=== PATIENT | female | born 1985 | race Caucasian/White ===

== ENCOUNTER 2020-01-12 19:32 | Emergency (ER) | payer MEDICAID, BC ==
[~2020-01-12] VITALS: Ht 160 cm; Wt 65.8 kg
[~2020-01-12 19:32] MED LIST: SYNTHROID125 MCG PO; XANAX0.5 MG PO
[2020-01-12 19:50] VITALS: Ht 160 cm; Wt 65.8 kg
[2020-01-12 21:35] VITALS: BP 129/82
== END 2020-01-12 21:35 | disposition home or self-care (01) ==
LOC: D.ER 19:32
DX: R20.8 Other disturbances of skin sensation (principal); E07.9 Disorder of thyroid, unspecified

== ENCOUNTER 2020-01-23 23:06 | Emergency (ER) | payer MEDICAID ==
[~2020-01-23] VITALS: Ht 160 cm; Wt 63.6 kg
[2020-01-23 23:26] VITALS: Ht 160 cm; Wt 63.6 kg
[2020-01-24 00:15] VITALS: BP 116/71
== END 2020-01-24 00:15 | disposition home or self-care (01) ==
LOC: D.ER 23:06
DX: R53.1 Weakness (principal); F41.9 Anxiety disorder, unspecified; E03.9 Hypothyroidism, unspecified

== ENCOUNTER 2020-02-08 20:47 | Emergency (ER) | payer OTHER, MEDICAID ==
[~2020-02-08] VITALS: Ht 160 cm; Wt 63.6 kg
[2020-02-08 21:06] VITALS: Ht 160 cm; Wt 63.6 kg
[2020-02-08 21:28] LABS: BASOPHILS 1.2 % (0-2); EOSINOPHILS 1.5 % (0-7); HEMATOCRIT 40.2 % (36.0-48.0); HEMOGLOBIN 12.5 g/dL (12-16); IMMATURE GRANULOCYTES 0.1 % (0-5); MCH 26.4 pg (26.0-34.0); MCHC 31.1 g/dL (31.0-37.0); MEAN PLATELET VOLUME 10.7 fL (7.4-10.4); MONOCYTES 7.5 % (2-11); NEUTROPHILS 54.7 % (40-80); PLATELET COUNT 259 10x3/uL (130-400); RBC 4.73 10x6/uL (4.00-5.40); RDW 15.2 % (11.5-14.5); WBC 8.2 10x3/uL (4.8-10.8)
[2020-02-08 21:44] LABS: BILIRUBIN NEGATIVE (NEGATIVE); GLUCOSE NEGATIVE (NEGATIVE); KETONE NEGATIVE (NEGATIVE); NITRITE NEGATIVE (NEGATIVE); SPECIFIC GRAVITY 1.005 (1.005-1.020); UROBILINOGEN NORMAL (NORMAL)
[2020-02-08 21:46] LABS: CALC OSMOLALITY 280 mosm/kg (275-300); CALCIUM 9.4 mg/dL (8.5-10.1); CARBON DIOXIDE 29.3 mmol/L (21.0-32.0); CHLORIDE - SERUM 105 mmol/L (98-107); GLUCOSE 94 mg/dL (74-106); POTASSIUM - SERUM 3.6 mmol/L (3.5-5.1); SODIUM 141 mmol/L (136-145); UREA NITROGEN 12 mg/dL (7-18); eGFR NON AFRICAN AMERICAN 67 mL/min (90-120)
[2020-02-08 21:57] LABS: UDS - AMPHET NEGATIVE QUAL (NEGATIVE); UDS - BARB NEGATIVE QUAL (NEGATIVE); UDS - BENZO POSITIVE QUAL (NEGATIVE); UDS - COCAINE NEGATIVE QUAL (NEGATIVE); UDS - OPIATE NEGATIVE QUAL (NEGATIVE); UDS - PCP NEGATIVE QUAL (NEGATIVE); UDS - THC NEGATIVE QUAL (NEGATIVE)
[2020-02-08 21:58] LABS: ALBUMIN 4.3 g/dL (3.4-5.0); ALKALINE PHOSPHATASE 61 U/L (30-120); ALT (SGPT) 14 U/L (10-68); BILIRUBIN - TOTAL 0.32 mg/dL (0.2-1.3); PROTEIN - SERUM 7.5 g/dL (6.4-8.2); THYROID STIMULATING HORMONE 1.45 uIU/mL (0.36-3.74)
[2020-02-08 22:00] LABS: TROPONIN-I < 0.017 ng/mL (0.000-0.060)
[2020-02-08 23:10] VITALS: BP 132/67
== END 2020-02-08 23:14 | disposition home or self-care (01) ==
LOC: D.ER 20:47
PROVIDERS: Family Medicine
DX: R53.1 Weakness (principal)

== ENCOUNTER → 2020-02-12 09:45 | Outpatient (CLI) | payer OTHER, MEDICAID ==
[2020-02-08 21:06] VITALS: BMI 24.8
== END | disposition home or self-care (01) ==
LOC: D.MRI 09:45
PROVIDERS: ATTEND Psychiatry & Neurology Neurology
DX: G37.9 Demyelinating disease of central nervous system, unspecified (principal)

== ENCOUNTER 2020-02-12 10:55 | Emergency (ER) | payer OTHER, MEDICAID ==
[~2020-02-12] VITALS: Ht 165.1 cm; Wt 63.6 kg
[2020-02-12 11:00] VITALS: Ht 165.1 cm; Wt 63.6 kg
[2020-02-12 11:59] LABS: BASOPHILS 1.6 % (0-2); EOSINOPHILS 1.5 % (0-7); HEMATOCRIT 43.6 % (36.0-48.0); HEMOGLOBIN 13.2 g/dL (12-16); LYMPHOCYTES 32.2 % (15-50); MCH 26.1 pg (26.0-34.0); MCHC 30.3 g/dL (31.0-37.0); MCV 86.3 fL (80.0-100.0); MEAN PLATELET VOLUME 11.3 fL (7.4-10.4); MONOCYTES 6.4 % (2-11); NEUTROPHILS 58.3 % (40-80); PLATELET COUNT 294 10x3/uL (130-400); RBC 5.05 10x6/uL (4.00-5.40); RDW 15.3 % (11.5-14.5); WBC 6.1 10x3/uL (4.8-10.8)
[2020-02-12 12:14] LABS: CALC OSMOLALITY 280 mosm/kg (275-300); CALCIUM 9.4 mg/dL (8.5-10.1); CARBON DIOXIDE 30.6 mmol/L (21.0-32.0); CHLORIDE - SERUM 104 mmol/L (98-107); CREATININE - SERUM 0.8 mg/dL (0.6-1.3); GLUCOSE 76 mg/dL (74-106); POTASSIUM - SERUM 3.9 mmol/L (3.5-5.1); SODIUM 142 mmol/L (136-145); UREA NITROGEN 10 mg/dL (7-18); eGFR NON AFRICAN AMERICAN 87 mL/min (90-120)
[2020-02-12 12:20] LABS: ALBUMIN 4.7 g/dL (3.4-5.0); ALKALINE PHOSPHATASE 64 U/L (30-120); ALT (SGPT) 15 U/L (10-68); BILIRUBIN - TOTAL 0.48 mg/dL (0.2-1.3); PROTEIN - SERUM 7.6 g/dL (6.4-8.2)
[2020-02-12 12:46] LABS: CREATINE KINASE 50 UL (21-215)
[2020-02-12 12:58] LABS: ERYTHROCYTE SEDIMENTATION RATE 2 mm/hr (0-20)
[2020-02-12 13:20] VITALS: BP 122/65
[2020-02-13 09:08] LABS: ANA REFLEX - DIRECT Negative (Negative)
[2020-02-14 12:08] LABS: ANGIOTENSIN CONVERTING ENZYME 44 U/L (14-82)
== END 2020-02-12 14:23 | disposition home or self-care (01) ==
LOC: D.ER 10:55
PROVIDERS: Family Medicine; Psychiatry & Neurology Neurology
DX: R42 Dizziness and giddiness (principal); E03.9 Hypothyroidism, unspecified

== ENCOUNTER 2020-02-22 13:12 | Emergency (ER) | payer OTHER, MEDICAID ==
[2020-02-22 13:22] VITALS: Ht 165.1 cm
[2020-02-22 14:48] VITALS: BP 116/71
== END 2020-02-22 14:48 | disposition home or self-care (01) ==
LOC: D.ER 13:12
DX: R55 Syncope and collapse (principal); R42 Dizziness and giddiness; F41.1 Generalized anxiety disorder; F43.0 Acute stress reaction; E03.9 Hypothyroidism, unspecified

== ENCOUNTER 2020-02-26 20:28 | Emergency (ER) | payer OTHER, MEDICAID ==
[~2020-02-26] VITALS: Ht 165.1 cm; Wt 63.6 kg
[2020-02-26 20:57] VITALS: Ht 165.1 cm; Wt 63.6 kg
[2020-02-26 22:17] VITALS: BP 101/49
== END 2020-02-26 22:17 | disposition home or self-care (01) ==
LOC: D.ER 20:28
DX: M54.10 Radiculopathy, site unspecified (principal)

== ENCOUNTER 2020-03-01 16:29 | Emergency (ER) | payer OTHER, MEDICAID ==
[2020-03-01 16:34] VITALS: Ht 165.1 cm
[2020-03-01 16:59] LABS: BASOPHILS 1.7 % (0-2); EOSINOPHILS 1.4 % (0-7); HEMATOCRIT 41.7 % (36.0-48.0); HEMOGLOBIN 12.8 g/dL (12-16); IMMATURE GRANULOCYTES 0.2 % (0-5); LYMPHOCYTES 32.8 % (15-50); MCH 26.4 pg (26.0-34.0); MCHC 30.7 g/dL (31.0-37.0); MCV 86.2 fL (80.0-100.0); MEAN PLATELET VOLUME 10.8 fL (7.4-10.4); MONOCYTES 7.1 % (2-11); NEUTROPHILS 56.8 % (40-80); PLATELET COUNT 295 10x3/uL (130-400); RBC 4.84 10x6/uL (4.00-5.40); WBC 6.6 10x3/uL (4.8-10.8)
[2020-03-01 17:11] LABS: ANION GAP 9.6 mmol/L (8-16); CREATININE - SERUM 1.1 mg/dL (0.6-1.3); POTASSIUM - SERUM 3.6 mmol/L (3.5-5.1)
[2020-03-01 17:21] LABS: ALBUMIN 4.6 g/dL (3.4-5.0); BILIRUBIN - TOTAL 0.49 mg/dL (0.2-1.3); PROTEIN - SERUM 7.8 g/dL (6.4-8.2); THYROID STIMULATING HORMONE 16.41 uIU/mL (0.36-3.74)
[2020-03-01 17:53] VITALS: BP 125/68
== END 2020-03-01 17:54 | disposition home or self-care (01) ==
LOC: D.ER 16:29
PROVIDERS: Family Medicine
DX: E03.9 Hypothyroidism, unspecified (principal); R00.2 Palpitations; R53.1 Weakness

== ENCOUNTER 2020-03-28 17:52 | Emergency (ER) | payer OTHER, MEDICAID ==
[~2020-03-28] VITALS: Ht 165.1 cm; Wt 63.5 kg
[2020-03-28 18:01] VITALS: Ht 165.1 cm; Wt 63.5 kg
[2020-03-28 18:58] LABS: BASOPHILS 1.1 % (0-2); EOSINOPHILS 1.6 % (0-7); HEMOGLOBIN 12.7 g/dL (12-16); IMMATURE GRANULOCYTES 0.1 % (0-5); LYMPHOCYTES 33.7 % (15-50); MCH 26.4 pg (26.0-34.0); MCV 85.2 fL (80.0-100.0); MEAN PLATELET VOLUME 10.6 fL (7.4-10.4); MONOCYTES 4.6 % (2-11); NEUTROPHILS 58.9 % (40-80); PLATELET COUNT 312 10x3/uL (130-400); RBC 4.81 10x6/uL (4.00-5.40); RDW 14.5 % (11.5-14.5); WBC 7.4 10x3/uL (4.8-10.8)
[2020-03-28 19:06] LABS: CALC OSMOLALITY 280 mosm/kg (275-300); CALCIUM 9.1 mg/dL (8.5-10.1); CARBON DIOXIDE 30.4 mmol/L (21.0-32.0); CHLORIDE - SERUM 103 mmol/L (98-107); CREATININE - SERUM 0.9 mg/dL (0.6-1.3); GLUCOSE 110 mg/dL (74-106); POTASSIUM - SERUM 3.3 mmol/L (3.5-5.1); SODIUM 140 mmol/L (136-145); UREA NITROGEN 15 mg/dL (7-18); eGFR NON AFRICAN AMERICAN 76 mL/min (90-120)
[2020-03-28 19:07] LABS: APTT 32.9 SECONDS (22.8-39.4); INR 1.1 (0.85-1.17); PROTIME 14.2 SECONDS (11.6-15.0)
[2020-03-28 19:22] LABS: ALBUMIN 4.5 g/dL (3.4-5.0); ALKALINE PHOSPHATASE 71 U/L (30-120); ALT (SGPT) 18 U/L (10-68); BILIRUBIN - TOTAL 0.39 mg/dL (0.2-1.3); CKMB 0.3 U/L (0.0-3.6); CREATINE KINASE 72 UL (21-215); MAGNESIUM - SERUM 2.2 mg/dL (1.8-2.4); THYROID STIMULATING HORMONE 5.22 uIU/mL (0.36-3.74)
[2020-03-28 19:31] LABS: TROPONIN-I < 0.017 ng/mL (0.000-0.060)
[2020-03-28 20:49] VITALS: BP 116/64
== END 2020-03-28 20:50 | disposition home or self-care (01) ==
LOC: D.ER 17:52
PROVIDERS: Family Medicine
DX: F41.9 Anxiety disorder, unspecified (principal); R00.2 Palpitations; E03.9 Hypothyroidism, unspecified; R53.1 Weakness

== ENCOUNTER 2020-04-23 20:10 | Emergency (ER) | payer OTHER, MEDICAID ==
[~2020-04-23] VITALS: Ht 165.1 cm; Wt 63.5 kg
[2020-04-23 20:17] VITALS: Ht 165.1 cm; Wt 63.5 kg
[2020-04-23 20:44] LABS: EOSINOPHILS 2.5 % (0-7); HEMATOCRIT 38.3 % (36.0-48.0); HEMOGLOBIN 11.9 g/dL (12-16); LYMPHOCYTES 38.1 % (15-50); MCH 26.8 pg (26.0-34.0); MCHC 31.1 g/dL (31.0-37.0); MCV 86.3 fL (80.0-100.0); MEAN PLATELET VOLUME 10.2 fL (7.4-10.4); MONOCYTES 5.4 % (2-11); PLATELET COUNT 305 10x3/uL (130-400); RBC 4.44 10x6/uL (4.00-5.40); WBC 7.6 10x3/uL (4.8-10.8)
[2020-04-23 20:46] LABS: HCG URINE NEGATIVE (NEGATIVE)
[2020-04-23 20:47] LABS: BILIRUBIN NEGATIVE (NEGATIVE); GLUCOSE NEGATIVE (NEGATIVE); KETONE NEGATIVE (NEGATIVE); NITRITE NEGATIVE (NEGATIVE); SPECIFIC GRAVITY 1.005 (1.005-1.020); UROBILINOGEN NORMAL (NORMAL)
[2020-04-23 20:51] LABS: BACTERIA NONE SEEN /hpf (NEGATIVE); EPITHELIAL CELLS NSEEN /hpf (0-5); RED CELLS - URINE 0-5 /hpf (0-5); WHITE CELLS - URINE NSEEN /hpf (NEGATIVE)
[2020-04-23 20:52] LABS: CALC OSMOLALITY 279 mosm/kg (275-300); CALCIUM 8.5 mg/dL (8.5-10.1); CHLORIDE - SERUM 103 mmol/L (98-107); CREATININE - SERUM 0.8 mg/dL (0.6-1.3); GLUCOSE 100 mg/dL (74-106); POTASSIUM - SERUM 3.3 mmol/L (3.5-5.1); SODIUM 140 mmol/L (136-145); UREA NITROGEN 14 mg/dL (7-18); eGFR NON AFRICAN AMERICAN 87 mL/min (90-120)
[2020-04-23 20:58] LABS: INR 0.98 (0.85-1.17)
[2020-04-23 21:07] LABS: ALBUMIN 4.2 g/dL (3.4-5.0); ALKALINE PHOSPHATASE 68 U/L (30-120); ALT (SGPT) 19 U/L (10-68); PROTEIN - SERUM 7.7 g/dL (6.4-8.2); THYROID STIMULATING HORMONE 4.37 uIU/mL (0.36-3.74)
[2020-04-23 21:49] VITALS: BP 132/84
== END 2020-04-23 21:49 | disposition home or self-care (01) ==
LOC: D.ER 20:10
PROVIDERS: Family Medicine
DX: N93.8 Other specified abnormal uterine and vaginal bleeding (principal); R42 Dizziness and giddiness; E87.6 Hypokalemia; E03.9 Hypothyroidism, unspecified

== ENCOUNTER 2020-04-24 16:07 | Emergency (ER) | payer OTHER, MEDICAID ==
[~2020-04-24] VITALS: Ht 165.1 cm; Wt 63.6 kg
[2020-04-24 16:15] VITALS: Ht 165.1 cm; Wt 63.6 kg
[2020-04-24 16:49] LABS: BASOPHILS 1.7 % (0-2); EOSINOPHILS 2.5 % (0-7); HEMATOCRIT 41.8 % (36.0-48.0); HEMOGLOBIN 12.6 g/dL (12-16); IMMATURE GRANULOCYTES 0.1 % (0-5); LYMPHOCYTES 33.2 % (15-50); MCH 26.1 pg (26.0-34.0); MCHC 30.1 g/dL (31.0-37.0); MCV 86.7 fL (80.0-100.0); MEAN PLATELET VOLUME 10.4 fL (7.4-10.4); MONOCYTES 5.6 % (2-11); NEUTROPHILS 56.9 % (40-80); RBC 4.82 10x6/uL (4.00-5.40); RDW 14.3 % (11.5-14.5); WBC 6.9 10x3/uL (4.8-10.8)
[2020-04-24 16:52] LABS: PLATELET COUNT 372 10x3/uL (130-400)
[2020-04-24 16:56] LABS: APTT 30.2 SECONDS (22.8-39.4); INR 0.99 (0.85-1.17); PROTIME 13.1 SECONDS (11.6-15.0)
[2020-04-24 16:59] LABS: CALCIUM 8.7 mg/dL (8.5-10.1); CARBON DIOXIDE 33.3 mmol/L (21.0-32.0); CHLORIDE - SERUM 105 mmol/L (98-107); GLUCOSE 83 mg/dL (74-106); SODIUM 143 mmol/L (136-145); eGFR NON AFRICAN AMERICAN 67 mL/min (90-120)
[2020-04-24 17:08] LABS: CALC OSMOLALITY 282 mosm/kg (275-300); POTASSIUM - SERUM 3.8 mmol/L (3.5-5.1); UREA NITROGEN 9 mg/dL (7-18)
[2020-04-24 17:16] LABS: ALBUMIN 4.3 g/dL (3.4-5.0); ALKALINE PHOSPHATASE 73 U/L (30-120); ALT (SGPT) 20 U/L (10-68); BILIRUBIN - TOTAL 0.33 mg/dL (0.2-1.3); CKMB 0.3 U/L (0.0-3.6); CREATINE KINASE 350 UL (21-215); MAGNESIUM - SERUM 2.2 mg/dL (1.8-2.4); PROTEIN - SERUM 7.7 g/dL (6.4-8.2); TROPONIN-I < 0.017 ng/mL (0.000-0.060)
[2020-04-24 19:30] VITALS: BP 132/84
[2020-04-25] MEDS ORDERED: TOPROL XL25 MG PO (20:38)
[2020-04-25] MEDS ORDERED: NATURE-THROID PO (20:38)
[2020-04-25] MEDS ORDERED: L-THEANINE (20:39)
[2020-04-25] MEDS ORDERED: BAYER CHEWABLE81 MG PO (20:40)
== END 2020-04-24 19:30 | disposition home or self-care (01) ==
LOC: D.ER 16:07
PROVIDERS: Family Medicine
DX: R42 Dizziness and giddiness (principal); F41.9 Anxiety disorder, unspecified; R79.89 Other specified abnormal findings of blood chemistry; R00.0 Tachycardia, unspecified; E07.9 Disorder of thyroid, unspecified; R53.1 Weakness

== ENCOUNTER 2020-04-25 20:26 | Emergency (ER) | payer OTHER, MEDICAID ==
[~2020-04-25] VITALS: Ht 165.1 cm; Wt 63.6 kg
[2020-04-25 20:34] VITALS: Ht 165.1 cm; Wt 63.6 kg
[2020-04-25] MEDS ORDERED: TOPROL XL25 MG PO (20:38)
[2020-04-25] MEDS ORDERED: NATURE-THROID PO (20:38)
[2020-04-25] MEDS ORDERED: L-THEANINE (20:39)
[2020-04-25] MEDS ORDERED: BAYER CHEWABLE81 MG PO (20:40)
[2020-04-25 21:04] LABS: BILIRUBIN NEGATIVE (NEGATIVE); GLUCOSE NEGATIVE (NEGATIVE); KETONE NEGATIVE (NEGATIVE); NITRITE NEGATIVE (NEGATIVE); SPECIFIC GRAVITY 1.005 (1.005-1.020); UROBILINOGEN NORMAL (NORMAL)
[2020-04-25 21:06] LABS: HCG URINE NEGATIVE (NEGATIVE)
[2020-04-25 21:09] LABS: BASOPHILS 1.3 % (0-2); EOSINOPHILS 1.9 % (0-7); HEMATOCRIT 38.1 % (36.0-48.0); HEMOGLOBIN 11.6 g/dL (12-16); IMMATURE GRANULOCYTES 0.1 % (0-5); LYMPHOCYTES 33.4 % (15-50); MCH 26.2 pg (26.0-34.0); MCHC 30.4 g/dL (31.0-37.0); MCV 86.2 fL (80.0-100.0); MEAN PLATELET VOLUME 10.2 fL (7.4-10.4); MONOCYTES 5.4 % (2-11); NEUTROPHILS 57.9 % (40-80); PLATELET COUNT 311 10x3/uL (130-400); RBC 4.42 10x6/uL (4.00-5.40); RDW 14.2 % (11.5-14.5); WBC 8.2 10x3/uL (4.8-10.8)
[2020-04-25 21:17] LABS: APTT 31.3 SECONDS (22.8-39.4); INR 1.04 (0.85-1.17); PROTIME 13.5 SECONDS (11.6-15.0)
[2020-04-25 21:20] LABS: ANION GAP 8.6 mmol/L (8-16); CARBON DIOXIDE 31.9 mmol/L (21.0-32.0); POTASSIUM - SERUM 3.5 mmol/L (3.5-5.1)
[2020-04-25 21:27] LABS: ALBUMIN 4.2 g/dL (3.4-5.0); BILIRUBIN - TOTAL 0.43 mg/dL (0.2-1.3); PROTEIN - SERUM 7.4 g/dL (6.4-8.2)
[2020-04-25 23:48] VITALS: BP 123/73
== END 2020-04-25 23:48 | disposition home or self-care (01) ==
LOC: D.ER 20:26
PROVIDERS: Emergency Medicine
DX: F41.9 Anxiety disorder, unspecified (principal); E07.9 Disorder of thyroid, unspecified

== ENCOUNTER 2020-05-29 15:18 | Emergency (ER) | payer OTHER, MEDICAID ==
[~2020-05-29] VITALS: Ht 165.1 cm; Wt 63.6 kg
[~2020-05-29 15:18] MED LIST changes: +BAYER CHEWABLE81 MG PO; +L-THEANINE; +NATURE-THROID PO; +TOPROL XL25 MG PO
[2020-05-29 15:31] VITALS: Ht 165.1 cm; Wt 63.6 kg
[2020-05-29] MEDS ORDERED: LEVOXYL150 MCG (15:34)
[2020-05-29] MEDS ORDERED: CYTOMEL5 MCG (15:34)
[2020-05-29 16:54] LABS: BASOPHILS 1.2 % (0-2); HEMOGLOBIN 11.1 g/dL (12-16); IMMATURE GRANULOCYTES 0.1 % (0-5); LYMPHOCYTES 15.4 % (15-50); MCH 25.6 pg (26.0-34.0); MCV 85.5 fL (80.0-100.0); MEAN PLATELET VOLUME 10.2 fL (7.4-10.4); MONOCYTES 4.2 % (2-11); NEUTROPHILS 78.1 % (40-80); PLATELET COUNT 308 10x3/uL (130-400); RBC 4.33 10x6/uL (4.00-5.40); RDW 13.7 % (11.5-14.5); WBC 9.1 10x3/uL (4.8-10.8)
[2020-05-29 17:02] LABS: CALC OSMOLALITY 278 mosm/kg (275-300); CALCIUM 8.7 mg/dL (8.5-10.1); CARBON DIOXIDE 29.6 mmol/L (21.0-32.0); CHLORIDE - SERUM 103 mmol/L (98-107); CREATININE - SERUM 0.8 mg/dL (0.6-1.3); GLUCOSE 119 mg/dL (74-106); POTASSIUM - SERUM 3.1 mmol/L (3.5-5.1); SODIUM 140 mmol/L (136-145); UREA NITROGEN 11 mg/dL (7-18); eGFR NON AFRICAN AMERICAN 87 mL/min (90-120)
[2020-05-29 17:22] LABS: APTT 29.9 SECONDS (22.8-39.4); INR 1.01 (0.85-1.17); PROTIME 13.2 SECONDS (11.6-15.0)
[2020-05-29 17:31] LABS: ALBUMIN 4.1 g/dL (3.4-5.0); ALKALINE PHOSPHATASE 58 U/L (30-120); ALT (SGPT) 14 U/L (10-68); BILIRUBIN - TOTAL 0.37 mg/dL (0.2-1.3); CKMB 0.5 U/L (0.0-3.6); CREATINE KINASE 69 UL (21-215); MAGNESIUM - SERUM 1.9 mg/dL (1.8-2.4); PROTEIN - SERUM 7.3 g/dL (6.4-8.2); THYROID STIMULATING HORMONE 1.35 uIU/mL (0.36-3.74); TROPONIN-I < 0.017 ng/mL (0.000-0.060)
[2020-05-29 17:55] VITALS: BP 119/66
== END 2020-05-29 17:56 | disposition home or self-care (01) ==
LOC: D.ER 15:18
PROVIDERS: Family Medicine
DX: E87.6 Hypokalemia (principal)

== ENCOUNTER 2020-07-05 09:58 | Emergency (ER) | payer OTHER, MEDICAID ==
[~2020-07-05 09:58] MED LIST changes: +CYTOMEL5 MCG; +LEVOXYL150 MCG
[2020-07-05 10:02] VITALS: Ht 165.1 cm
[2020-07-05 12:48] LABS: BASOPHILS 1.3 % (0-2); EOSINOPHILS 1.3 % (0-7); HEMATOCRIT 39.4 % (36.0-48.0); HEMOGLOBIN 12.1 g/dL (12-16); IMMATURE GRANULOCYTES 0.2 % (0-5); LYMPHOCYTES 27.4 % (15-50); MCH 25.7 pg (26.0-34.0); MCHC 30.7 g/dL (31.0-37.0); MCV 83.8 fL (80.0-100.0); MEAN PLATELET VOLUME 10.1 fL (7.4-10.4); MONOCYTES 4.5 % (2-11); NEUTROPHILS 65.3 % (40-80); PLATELET COUNT 251 10x3/uL (130-400); RDW 14.5 % (11.5-14.5); WBC 6.2 10x3/uL (4.8-10.8)
[2020-07-05 13:05] LABS: CALC OSMOLALITY 279 mosm/kg (275-300); CALCIUM 8.8 mg/dL (8.5-10.1); CARBON DIOXIDE 29.8 mmol/L (21.0-32.0); CHLORIDE - SERUM 105 mmol/L (98-107); CREATININE - SERUM 0.7 mg/dL (0.6-1.3); GLUCOSE 94 mg/dL (74-106); POTASSIUM - SERUM 3.9 mmol/L (3.5-5.1); SODIUM 141 mmol/L (136-145); UREA NITROGEN 9 mg/dL (7-18); eGFR NON AFRICAN AMERICAN > 90 mL/min (90-120)
[2020-07-05 13:19] LABS: ALBUMIN 4.1 g/dL (3.4-5.0); ALKALINE PHOSPHATASE 57 U/L (30-120); ALT (SGPT) 15 U/L (10-68); BILIRUBIN - TOTAL 0.28 mg/dL (0.2-1.3); PROTEIN - SERUM 7.3 g/dL (6.4-8.2); THYROID STIMULATING HORMONE 0.49 uIU/mL (0.36-3.74)
[2020-07-05] MEDS ORDERED: MEDROL DOSE PACK4 MG PO (13:27)
[2020-07-05 19:35] VITALS: BP 124/87
== END 2020-07-05 14:10 | disposition home or self-care (01) ==
LOC: D.ER 09:58
PROVIDERS: Family Medicine
DX: R21 Rash and other nonspecific skin eruption (principal); R51 Headache; M79.18 Myalgia, other site; E07.9 Disorder of thyroid, unspecified; R20.0 Anesthesia of skin; F41.9 Anxiety disorder, unspecified; M54.2 Cervicalgia

== ENCOUNTER 2020-08-20 10:59 | Emergency (ER) | payer OTHER, MEDICAID ==
[~2020-08-20] VITALS: Ht 165.1 cm; Wt 68.2 kg
[~2020-08-20 10:59] MED LIST changes: +LEVOXYL100 MCG PO; -LEVOXYL150 MCG; +MEDROL DOSE PACK4 MG PO
[2020-08-20 11:05] VITALS: BP 128/67; Ht 165.1 cm; Wt 68.2 kg
[2020-08-20 11:49] LABS: BASOPHILS 2.5 % (0-2); EOSINOPHILS 1.9 % (0-7); HEMATOCRIT 37.9 % (36.0-48.0); HEMOGLOBIN 11.6 g/dL (12-16); LYMPHOCYTES 33.8 % (15-50); MCH 25.3 pg (26.0-34.0); MCHC 30.6 g/dL (31.0-37.0); MCV 82.8 fL (80.0-100.0); MEAN PLATELET VOLUME 10.7 fL (7.4-10.4); MONOCYTES 6.9 % (2-11); NEUTROPHILS 54.9 % (40-80); PLATELET COUNT 271 10x3/uL (130-400); RBC 4.58 10x6/uL (4.00-5.40); WBC 5.2 10x3/uL (4.8-10.8)
[2020-08-20 12:04] LABS: CALC OSMOLALITY 284 mosm/kg (275-300); CHLORIDE - SERUM 106 mmol/L (98-107); CREATININE - SERUM 0.8 mg/dL (0.6-1.3); GLUCOSE 99 mg/dL (74-106); POTASSIUM - SERUM 3.8 mmol/L (3.5-5.1); SODIUM 143 mmol/L (136-145); UREA NITROGEN 12 mg/dL (7-18); eGFR NON AFRICAN AMERICAN 87 mL/min (90-120)
[2020-08-20 12:17] LABS: ALBUMIN 4.2 g/dL (3.4-5.0); ALKALINE PHOSPHATASE 52 U/L (30-120); ALT (SGPT) 11 U/L (10-68); INR 1.02 (0.85-1.17); PROTEIN - SERUM 7.2 g/dL (6.4-8.2); PROTIME 13.3 SECONDS (11.6-15.0); THYROID STIMULATING HORMONE 3.72 uIU/mL (0.36-3.74); TROPONIN-I < 0.017 ng/mL (0.000-0.060)
[2020-08-20] MEDS ORDERED: HYDROXYZINE HCL50 MG PO (14:52)
[2020-08-20 15:04] LABS: BILIRUBIN NEGATIVE (NEGATIVE); HCG URINE NEGATIVE (NEGATIVE); KETONE NEGATIVE (NEGATIVE); NITRITE NEGATIVE (NEGATIVE); UROBILINOGEN NORMAL mg/dL (< 2)
[2020-08-20] MEDS ORDERED: BAYER CHEWABLE81 MG PO (15:09)
[2020-08-20] MEDS ORDERED: TOPROL XL25 MG PO (15:10)
[2020-08-20 15:15] LABS: UDS - AMPHET NEGATIVE QUAL (NEGATIVE); UDS - BARB NEGATIVE QUAL (NEGATIVE); UDS - BENZO POSITIVE QUAL (NEGATIVE); UDS - COCAINE NEGATIVE QUAL (NEGATIVE); UDS - OPIATE NEGATIVE QUAL (NEGATIVE); UDS - PCP NEGATIVE QUAL (NEGATIVE); UDS - THC NEGATIVE QUAL (NEGATIVE)
== END 2020-08-20 16:32 | disposition home or self-care (01) ==
LOC: D.ER 10:59
PROVIDERS: Family Medicine
DX: F41.9 Anxiety disorder, unspecified (principal); R42 Dizziness and giddiness

== ENCOUNTER → 2021-01-18 09:04 | Day surgery (SDC) | payer BC, MEDICAID ==
[2020-08-20 11:05] VITALS: BMI 25.0
[~2021-01-18 09:04] MED LIST changes: +EXTRA PAIN REL1 EACH PO; +HYDROXYZINE HCL50 MG PO
[2021-01-18 12:12] LABS: GLUCOSE - CSF 57 MG/DL (40-75); PROTEIN - CSF 32 MG/DL (12-60)
[2021-01-18 13:18] LABS: APPEARANCE - CSF COLORLESS
[2021-01-18 13:19] LABS: RBC - CSF 3 cmm (0-0)
[2021-01-20 14:11] LABS: FUNGUS STAIN Final report (())
== END | disposition home or self-care (01) ==
LOC: D.RAD 09:00 → D.SP 09:00 → EDSTATUS 09:00 → D.SP 09:04
PROVIDERS: ATTEND Psychiatry & Neurology Neurology
DX: G37.9 Demyelinating disease of central nervous system, unspecified (principal)

== ENCOUNTER 2021-01-20 09:58 | Emergency (ER) | payer BC ==
[~2021-01-20] VITALS: Ht 165.1 cm; Wt 65.9 kg
[~2021-01-20 09:58] MED LIST changes: -EXTRA PAIN REL1 EACH PO
[2021-01-20 10:10] VITALS: BP 135/82; Ht 165.1 cm; Wt 65.9 kg
[2021-01-20] MEDS ORDERED: EXTRA PAIN REL1 EACH PO (11:16)
== END 2021-01-20 11:37 | disposition home or self-care (01) ==
LOC: D.ER 09:58
DX: R51.9 Headache, unspecified (principal); M54.2 Cervicalgia